=== PATIENT | female | born 1950 | race Caucasian/White ===

== ENCOUNTER 2020-02-02 16:54 | Emergency (ER) | payer MEDICARE, OTHER, SELFPAY ==
[2020-02-02 17:03] VITALS: PULSE 69; RESP 18; TEMP 36.4; O2SAT 98; BMI 28.0
--- NOTE | 2020-02-02 17:26 | W.ED.EXTPRO ---
HPI - Extremity Problem General: Chief complaint: Extremity Injury, Lower Stated complaint: fall Time Seen by Provider: 02/02/20 17:25 Source: patient Mode of arrival: ambulatory Limitations: no limitations History of Present Illness: HPI Narrative: Patient was fishing today and accidentally got a fishhook stuck in her right thigh. Family was able to remove it she needs a tetanus shot for this injury. While patient was also fishing she twisted her left foot. Patient states that she has pain and discomfort with some mild swelling to the foot. Patient reports pain is increased with weightbearing. Patient does report chronic medical problems and is on multiple medications. Patient appears well. Patient appears in no pain at rest. MD Complaint: extremity pain Review of Systems General: Reports: 10 or more systems reviewed and unremarkable except in HPI and below Musc: Reports: extremity pain (left foot) Physical Exam Const: COMMON NORMALS: no acute distress and patient oriented x3 GENERAL APPEARANCE: cooperative HENMT: COMMON NORMALS: normocephalic and Normal external nose present HEAD & SCALP: normal to inspection and normocephalic NOSE: Normal external nose present Eye: GENERAL EYE: appearance normal, both eyes and all related structures Neck/C-Spine: COMMON NORMALS: full ROM Chest: COMMONS NORMALS: normal inspection of the chest Resp: COMMON NORMALS: normal respiratory effort EFFORT & INSPECTION: Yes able to speak in complete sentences Cardio: COMMON NORMALS: regular rate and regular rhythm RATE: regular rate RHYTHM: regular rhythm GI: COMMON NORMALS: non-tender Back/Pelvis: COMMON NORMALS: thoracic and lumbar spine normal to inspection Extremity: NARRATIVE EXTREMITY EXAM: Minimal swelling is noted to the left foot, no obvious deformity, tenderness is noted to the lateral left foot. Prompt capillary refill and pulses are intact. Neuro: COMMON NORMALS: patient oriented x3 and moves all extremities Psych: COMMON NORMALS: mental status grossly normal and cooperative Skin: COMMON NORMALS: no rashes or lesions noted GENERAL SKIN EXAM: no rashes or lesions noted Course Vital Signs: Vital signs: Vital Signs Temperature 97.6 F 02/02/20 17:03 Pulse Rate 69 02/02/20 17:03 Respiratory Rate 18 02/02/20 17:03 Pulse Oximetry 98 02/02/20 17:03 MDM - Extremity (Nontraumatic) MDM Narrative: Medical decision making narrative: Patient comes in today for complaints of injury to the left foot and also a fishhook injury. The fishhook was removed prior to emergency department visit, patient is needing tetanus. Patient reports twisting her foot wrong and having pain in the left foot. On exam no obvious swelling and minimal tenderness is noted to the lateral left foot. Pulses are intact and prompt capillary refill is noted. Differential diagnosis includes but not limited to fracture, sprain, arthritis, need for prophylaxis tetanus. X-ray noted no acute fracture. Reviewed exam with patient recommendations for follow-up. Patient reports understanding agreed to plan. Discharge Plan Discharge Patient Disposition: Home, Self-Care Clinical Impression: Sprain of foot Qualifiers: Encounter type: initial encounter Laterality: left Qualified Code(s): S93.602A - Unspecified sprain of left foot, initial encounter Condition: Stable Discharge Orders: Discharge Order (Routine); Ordered 02/02/20 Ordered By: Rusty Dong Discharge Diet: Usual diet Discharge Activity: Increase activity as tolerated Patient Instructions: Foot Sprain (ED) Activity Restrictions/Additional Instructions: Activity as tolerated. Wear good supportive shoe. Use Homar wrap for comfort. Increase activity as pain resolves. Pain should start improving after about 3 days. If no improvement within 1 week, recommend recheck. Return to the ED for new concerns. Coding Level of Care Code ED [employer] for [facility] Exam Comprehensive
--- NOTE | 2020-02-02 17:31 | XRR_ITS ---
PROCEDURE INFORMATION: Exam: XR Left Foot Complete Exam date and time: 02/02/2020 5:32 PM Age: 69 years old Clinical indication: Injury or trauma; Fall; Initial encounter; Blunt trauma; Foot; Left TECHNIQUE: Imaging protocol: XR Left foot. Views: 3 or more views. COMPARISON: No relevant prior studies available. FINDINGS: Bones/joints: Negative for acute bony abnormality. Surgical screws are seen in the distal shaft of the 1st metatarsal and proximal phalange of the great toe. There is a chronic deformity in the distal with the shaft of the 1st metatarsal. Soft tissues: Normal. XR/XR foot LT min 3V* [id number] IMPRESSION: 1. No acute findings. 2. Metallic screws of the 1st metatarsal and the great toe. 3. 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
[2020-02-02] MEDS: tetanus-dipt-pertussis 0.5 mL SDV IM (18:26)
[2020-02-02 18:46] VITALS: BP 178/87; PULSE 61; RESP 18; O2SAT 100
== END 2020-02-02 18:48 | disposition home or self-care (01) ==
PROVIDERS: Emergency Provider Nurse Practitioner Family
DX: S93.602A Unspecified sprain of left foot, initial encounter (principal); X50.1XXA Overexertion from prolonged static or awkward postures, initial encounter; Z23 Encounter for immunization; S71.131A Puncture wound without foreign body, right thigh, initial encounter; W26.8XXA Contact with other sharp object(s), not elsewhere classified, initial encounter
CPT/HCPCS: 12345; 73630; 90471; 90715; 99281; 99283